=== PATIENT | female | born 1965 | race African-American/Black ===

== ENCOUNTER 2018-03-08 19:39 | Emergency (ER) | payer SELFPAY ==
[2018-03-08] MEDS ORDERED: Oxymetazoline HCl 0.05% ( 15 ML ) ONE (19:52)
[2018-03-08] MEDS ORDERED: cloNIDine 0.1 MG TAB ONE ×2 (19:56→20:31)
[2018-03-08] MEDS ORDERED: Sterile Water 0 ML ONE (19:58)
[2018-03-08] MEDS ORDERED: Acetaminophen/Codeine 30-300mg Tablet ONE (21:12)
== END 2018-03-08 21:46 | disposition home or self-care (01) ==
LOC: NAV ERS 19:39
DX: R04.0 Epistaxis (principal); I10 Essential (primary) hypertension; E11.9 Type 2 diabetes mellitus without complications; Z79.899 Other long term (current) drug therapy
CPT/HCPCS: 30903; A4216